=== PATIENT | female | born 2000 | race Caucasian/White ===

== ENCOUNTER 2019-09-04 23:44 | Inpatient (IN) ==
[2019-09-05] MEDS ORDERED: Lidocaine 1% 20 ML MDV INFILT PRN (00:09)
[2019-09-05] MEDS ORDERED: Famotidine 20 MG/2 ML VIAL IVP PRN (00:09)
[2019-09-05] MEDS ORDERED: Ondansetron 4 MG/2 ML VIAL IVP PRN (00:09)
[2019-09-05] MEDS ORDERED: Naloxone 0.4 MG/ML INJ IVP PRN (00:09)
[2019-09-05] MEDS ORDERED: *HR* FentaNYL (PF) 100 MCG/2 ML VIAL IVP PRN (00:09)
[2019-09-05] MEDS ORDERED: Metoclopramide 10 MG/2 ML VIAL IVP PRN (00:09)
[2019-09-05] MEDS ORDERED: Penicillin G Potassium 5,000,000 UNIT in 0.9 % Sodium Chloride Mini Bag 100 ML IVPB ONE (00:12)
[2019-09-05] MEDS ORDERED: D5% in 0.45% NACL 1,000 ML IVC SCH (00:15)
[2019-09-05] MEDS ORDERED: Ringers Solution, Lactated 1,000 ML ONE ×2 (00:33→08:26)
[2019-09-05 00:41] LABS: Amphetamine Screen,Urine Negative ng/mL (Cutoff=1000); Barbiturate Screen,Urine Negative ng/mL (Cutoff=200); Basophils # 0.1 K/mcL (0.0-0.2); Basophils % 0.4 %; Benzodiazepines Screen,Urine Negative ng/mL (Cutoff=200); Cannabinoid Screen,Urine Negative ng/mL (Cutoff = 50); Cocaine Screen,Urine Negative ng/mL (Cutoff= 300); Eosinophils # 0.1 K/mcL (0.0-0.6); Eosinophils % 0.7 %; Hematocrit 35.5 % (35.3-44.9); Hemoglobin 11.7 g/dL (11.5-15.4); Mean Corpuscular Hemoglobin 29.3 pg (28.0-33.3); Mean Corpuscular Volume 88.8 fL (83.0-100.0); Mean Platelet Volume 11.6 fL (9.4-12.4); Monocytes # 1.3 K/mcL (0.0-1.3); Monocytes % 10.2 %; Neutrophils # 8.5 K/mcL (1.6-8.9); Opiate Screen,Urine Negative ng/mL (Cutoff=300); Phencyclidine Screen,Urine Negative ng/mL (Cutoff=25); Platelet Count 219 K/mcL (140-400); Red Cell Distribution Width 11.9 % (11.5-14.5); Segmented Neutrophils % 64.7 %; White Blood Count 13.1 K/mcL (4.3-11.1)
[2019-09-05] MEDS: miSOPROStoL 25 MCG TABLET PO PRN ×2 (00:43→06:48)
[2019-09-05] MEDS ORDERED: EPHEDrine 50 MG/ML VIAL IVP PRN (00:59)
[2019-09-05] MEDS ORDERED: Epidural Premix (fent/bupiv) 110 ML EP SCH (01:00)
[2019-09-05] MEDS: Penicillin G Potassium 2,500,000 UNIT in 0.9 % Sodium Chloride 100 ML IVPB SCH ×2 (04:28→08:30)
[2019-09-05] MEDS ORDERED: Oxytocin 20 units/ LR 1000 mL 20 UNIT/1,000 ML BAG IVC ONE ×2 (11:59→14:51)
[2019-09-05] MEDS ORDERED: Oxytocin 20 units/ LR 1000 mL 20 UNIT/1,000 ML BAG IVC SCH ×2 (12:15→14:51)
[2019-09-05] MEDS ORDERED: Rho Immune Globulin 1,500 UNIT SYRINGE IM PRN (14:51)
[2019-09-05] MEDS ORDERED: Measles/Mumps/Rubella Vacc 0.5 ML VIAL SQ PRN (14:51)
[2019-09-05] MEDS ORDERED: Acetaminophen 325 MG TABLET PO PRN (14:51)
[2019-09-05] MEDS: Ibuprofen 600 MG TABLET PO PRN (15:58)
[2019-09-06] MEDS: Ibuprofen 600 MG TABLET PO PRN (03:18)
[2019-09-06 05:06] LABS: Basophils # 0.1 K/mcL (0.0-0.2); Basophils % 0.3 %; Eosinophils % 0.3 %; Hematocrit 35.6 % (35.3-44.9); Hemoglobin 11.9 g/dL (11.5-15.4); Lymphocytes # 2.9 K/mcL (0.6-4.6); Lymphocytes % 18.6 %; Mean Corpuscular HGB Conc 33.4 g/dL (31.6-35.5); Mean Corpuscular Hemoglobin 29.9 pg (28.0-33.3); Mean Corpuscular Volume 89.4 fL (83.0-100.0); Mean Platelet Volume 11.5 fL (9.4-12.4); Monocytes # 1.5 K/mcL (0.0-1.3); Monocytes % 9.5 %; Neutrophils # 10.9 K/mcL (1.6-8.9); Platelet Count 195 K/mcL (140-400); Red Blood Count 3.98 M/mcL (3.82-4.97); Segmented Neutrophils % 70.3 %; White Blood Count 15.5 K/mcL (4.3-11.1)
[2019-09-06 07:43] VITALS: BP 126/89
[2019-09-06] MEDS ORDERED: Prenatal Vit/FA 1 EACH TABLET PO SCH (09:00)
== END 2019-09-06 13:11 | disposition home or self-care (01) | DRG 560 ==
LOC: 1NENULAB 23:44 → 1NENUOBS 09-05 15:00
PROVIDERS: ADMIT Obstetrics & Gynecology; ATTEND Obstetrics & Gynecology

== ENCOUNTER 2021-06-20 21:54 | Inpatient (IN) ==
[2021-06-20] MEDS ORDERED: *HR* Nalbuphine 10 MG/ML AMPUL IV PRN (22:14)
[2021-06-20] MEDS ORDERED: miSOPROStoL 25 MCG TABLET VG PRN (22:14)
[2021-06-20] MEDS ORDERED: Lidocaine 1% 20 ML MDV INFILT PRN (22:14)
[2021-06-20] MEDS ORDERED: Azithromycin 500 MG in 0.9 % Sodium Chloride 250 ML IVPB PRN (22:14)
[2021-06-20] MEDS ORDERED: Ondansetron 4 MG/2 ML VIAL IVP PRN (22:14)
[2021-06-20] MEDS ORDERED: Famotidine 20 MG/2 ML VIAL IVP PRN (22:14)
[2021-06-20] MEDS ORDERED: Metoclopramide 10 MG/2 ML VIAL IVP PRN (22:14)
[2021-06-20] MEDS ORDERED: Naloxone 0.4 MG/ML INJ IVP PRN (22:14)
[2021-06-20 22:54] LABS: Basophils # 0.1 K/mcL (0.0-0.2); Basophils % 0.3 %; Eosinophils % 0.3 %; Hematocrit 35.5 % (35.3-44.9); Hemoglobin 12.1 g/dL (11.5-15.4); Immature Granulocytes % 0.8 % (0-4); Lymphocytes # 3.2 K/mcL (0.6-4.6); Lymphocytes % 20.6 %; Mean Corpuscular HGB Conc 34.1 g/dL (31.6-35.5); Mean Corpuscular Hemoglobin 30.3 pg (28.0-33.3); Mean Corpuscular Volume 88.8 fL (83.0-100.0); Mean Platelet Volume 11.5 fL (9.4-12.4); Monocytes # 1.3 K/mcL (0.0-1.3); Monocytes % 8.4 %; Neutrophils # 10.8 K/mcL (1.6-8.9); Platelet Count 229 K/mcL (140-400); Red Cell Distribution Width 11.9 % (11.5-14.5); Segmented Neutrophils % 69.6 %; White Blood Count 15.6 K/mcL (4.3-11.1)
[2021-06-20] MEDS: Ringers Solution, Lactated 1,000 ML IVC SCH (23:09)
[2021-06-20 23:20] LABS: Influenza A PCR Negative (Negative); Influenza B PCR Negative (Negative); Resp. Syncytial Virus PCR Negative (Negative)
[2021-06-20 23:31] LABS: SARS-CoV-2 by PCR (In House) Negative (Negative)
[2021-06-21 00:01] LABS: Amphetamine Screen,Urine Negative ng/mL (Cutoff=1000); Barbiturate Screen,Urine Negative ng/mL (Cutoff=200); Benzodiazepines Screen,Urine Negative ng/mL (Cutoff=200); Cannabinoid Screen,Urine Negative ng/mL (Cutoff = 50); Cocaine Screen,Urine Negative ng/mL (Cutoff= 300); Opiate Screen,Urine Negative ng/mL (Cutoff=300); Phencyclidine Screen,Urine Negative ng/mL (Cutoff=25)
[2021-06-21] MEDS: miSOPROStoL 25 MCG TABLET PO PRN ×2 (00:06→04:38)
[2021-06-21] MEDS ORDERED: Acetaminophen 325 MG TABLET PO PRN (04:37)
[2021-06-21] MEDS ORDERED: Oxytocin 20 units/ LR 1000 mL 20 UNIT/1,000 ML BAG IVC SCH ×2 (06:00→15:00)
[2021-06-21] MEDS ORDERED: Ropivacaine/PF 0.2% 20 ML VIAL EP ONE (10:26)
[2021-06-21] MEDS ORDERED: *HR* FentaNYL (PF) 100 MCG/2 ML VIAL EP ONE (10:26)
[2021-06-21] MEDS ORDERED: Ondansetron 4 MG/2 ML VIAL IVP PRN (10:26)
[2021-06-21] MEDS ORDERED: EPHEDrine 50 MG/ML VIAL IVP PRN (10:26)
[2021-06-21] MEDS ORDERED: Naloxone 0.4 MG/ML INJ IVP PRN (10:26)
[2021-06-21] MEDS ORDERED: Epidural Premix (fent/bupiv) 110 ML EP SCH (10:30)
[2021-06-21] MEDS ORDERED: Ropivacaine/PF 0.2% 20 ML VIAL ONE (10:50)
[2021-06-21] MEDS: Ringers Solution, Lactated 1,000 ML IVC SCH (11:23)
[2021-06-21] MEDS ORDERED: Benzocaine/Menthol 56 GM AEROSOL SPRAY TP PRN (14:58)
[2021-06-21] MEDS ORDERED: Lanolin 7 G OINT...G. TP PRN (14:58)
[2021-06-21] MEDS ORDERED: Ondansetron ODT 4 MG TAB.RAPDIS SL PRN (14:58)
[2021-06-21] MEDS: Ibuprofen 600 MG TABLET PO SCH ×2 (17:53→23:49)
[2021-06-21] MEDS: Acetaminophen 325 MG TABLET PO SCH ×2 (17:55→23:49)
[2021-06-22 02:54] VITALS: BP 125/81
[2021-06-22] MEDS: Acetaminophen 325 MG TABLET PO SCH (06:45)
[2021-06-22] MEDS: Ibuprofen 600 MG TABLET PO SCH (06:45)
[2021-06-22 08:28] VITALS: PULSE 69; TEMP 98.1; O2SAT 98
[2021-06-22] MEDS ORDERED: Prenatal Vit/FA 1 EACH TABLET PO SCH (09:00)
== END 2021-06-22 14:38 | disposition home or self-care (01) | DRG 560 ==
LOC: 1NENULAB 21:54 → 2ANU 06-21 16:46 → 1NENUOBS 06-21 16:54
PROVIDERS: ADMIT Student in an Organized Health Care Education/Training Program; ATTEND Student in an Organized Health Care Education/Training Program